=== PATIENT | male | born 1965 | race African-American/Black ===

== ENCOUNTER 2021-08-24 18:27 | Inpatient (IN) | payer OTHER ==
[2021-08-24 19:42] VITALS: BMI 21.5
[2021-08-24] MEDS ORDERED: guaiFENesin 200 MG/10 ML 10 ML UNIT-DOSE CUPS PO PRN (21:00)
[2021-08-24] MEDS ORDERED: P-EPHED 60MG/TRIPROLIDI 2.5MG TABLET PO PRN (21:00)
[2021-08-24] MEDS ORDERED: MAGNESIUM CITRATE 300 ML BOTTLE PO PRN (21:00)
[2021-08-24] MEDS ORDERED: LOPERAMIDE HCL 2 MG CAPSULE PO PRN (21:00)
[2021-08-24] MEDS ORDERED: MAGNESIUM HYDROX 2400MG/30ML ORAL SUSPENSION 30 ML CUP PO PRN (21:00)
[2021-08-24] MEDS ORDERED: MAG HYDROX/AL HYDROX/SIMETH 30 ML UNIT-DOSE CUP PO PRN (21:00)
[2021-08-24] MEDS ORDERED: ACETAMINOPHEN 325 MG TABLET (FP) PO PRN (21:00)
[2021-08-24] MEDS ORDERED: TUBERCULIN PPD 5 TU/0.1ML VIAL ID ONE (22:55)
[2021-08-24] MEDS: THIAMINE HCL 100 MG TABLET (FP) PO SCH (22:56)
[2021-08-24] MEDS: IBUPROFEN 400 MG TABLET (FP) PO PRN (22:57)
[2021-08-24] MEDS: BACITRACIN 15 GM TUBE TOPICAL OINTMENT TP SCH (23:54)
[2021-08-25] MEDS ORDERED: NICOTINE 10 MG CARTRIDGE (INHALER) IH PRN (09:38)
[2021-08-25 09:55] LABS: HEMATOCRIT 35.5 % (35.4-49); HEMOGLOBIN 11.7 GM/dL (11.7-16.9); MCH 29.2 pg (25.7-33.7); MEAN CELL VOLUME 88.4 fl (80-96); MEAN PLT VOLUME 8.8 fl (7.5-11.1); PLATELET COUNT 234 10^3/uL (134-434); RBC 4.02 M/mm3 (4.00-5.60); WHITE BLOOD COUNT 6.6 K/mm3 (4.0-10.0)
[2021-08-25 09:57] LABS: URINE APPEARANCE CLEAR; URINE BILIRUBIN NEGATIVE (NEGATIVE); URINE COLOR YELLOW; URINE GLUCOSE (UA) NEGATIVE (NEGATIVE); URINE KETONE NEGATIVE (NEGATIVE); URINE LEUK ESTERASE NEGATIVE (NEGATIVE); URINE NITRITE NEGATIVE (NEGATIVE); URINE PROTEIN NEGATIVE (NEGATIVE); URINE UROBILINOGEN 0.2 mg/dL (0.2-1.0)
[2021-08-25 09:59] LABS: CALCIUM 8.4 mg/dL (8.5-10.1)
[2021-08-25 10:00] LABS: BLOOD UREA NITROGEN 18.6 mg/dL (7-18)
[2021-08-25 10:04] LABS: BILIRUBIN,TOTAL 0.2 mg/dL (0.2-1); TOT PROT 5.9 g/dl (6.4-8.2)
[2021-08-25] MEDS: PRENATAL VITAMINS W/ FOLIC ACID TABLET (FP) PO SCH (10:11)
[2021-08-25] MEDS: IBUPROFEN 400 MG TABLET (FP) PO PRN (10:11)
[2021-08-25] MEDS: BACITRACIN 0.9 GM PACKET TP SCH ×2 (12:06→21:21)
[2021-08-25] MEDS: BACITRACIN 15 GM TUBE TOPICAL OINTMENT TP SCH (12:13)
[2021-08-25] MEDS: LISINOPRIL 5 MG TABLET PO SCH (16:21)
[2021-08-25] MEDS: THIAMINE HCL 100 MG TABLET (FP) PO SCH (21:20)
[2021-08-25] MEDS: MELATONIN 5 MG TABLETS PO PRN (21:20)
[2021-08-26] MEDS: IBUPROFEN 400 MG TABLET (FP) PO PRN (06:35)
[2021-08-26] MEDS: LISINOPRIL 5 MG TABLET PO SCH (10:44)
[2021-08-26] MEDS: PRENATAL VITAMINS W/ FOLIC ACID TABLET (FP) PO SCH (10:44)
[2021-08-26] MEDS: BACITRACIN 0.9 GM PACKET TP SCH ×2 (10:44→21:13)
[2021-08-26] MEDS: SULFAMETHOXAZOLE/TRIMETHOPRIM 800MG/160MG D.S. TABLET PO SCH (14:27)
[2021-08-26] MEDS: MELATONIN 5 MG TABLETS PO PRN (21:13)
[2021-08-26] MEDS: THIAMINE HCL 100 MG TABLET (FP) PO SCH (21:13)
[2021-08-27] MEDS: LISINOPRIL 5 MG TABLET PO SCH (10:27)
[2021-08-27] MEDS: PRENATAL VITAMINS W/ FOLIC ACID TABLET (FP) PO SCH (10:27)
[2021-08-27] MEDS: SULFAMETHOXAZOLE/TRIMETHOPRIM 800MG/160MG D.S. TABLET PO SCH (10:27)
[2021-08-27] MEDS: BACITRACIN 0.9 GM PACKET TP SCH ×2 (10:27→21:28)
[2021-08-27] MEDS: THIAMINE HCL 100 MG TABLET (FP) PO SCH (21:28)
[2021-08-27] MEDS: MELATONIN 5 MG TABLETS PO PRN (21:28)
[2021-08-28] MEDS: SULFAMETHOXAZOLE/TRIMETHOPRIM 800MG/160MG D.S. TABLET PO SCH (10:25)
[2021-08-28] MEDS: BACITRACIN 0.9 GM PACKET TP SCH ×2 (10:25→21:32)
[2021-08-28] MEDS: PRENATAL VITAMINS W/ FOLIC ACID TABLET (FP) PO SCH (10:25)
[2021-08-28] MEDS: LISINOPRIL 5 MG TABLET PO SCH (10:25)
[2021-08-28] MEDS: IBUPROFEN 400 MG TABLET (FP) PO PRN (16:50)
[2021-08-28] MEDS: THIAMINE HCL 100 MG TABLET (FP) PO SCH (21:31)
[2021-08-28] MEDS: MELATONIN 5 MG TABLETS PO PRN (21:31)
[2021-08-29] MEDS: SULFAMETHOXAZOLE/TRIMETHOPRIM 800MG/160MG D.S. TABLET PO SCH (09:37)
[2021-08-29] MEDS: BACITRACIN 0.9 GM PACKET TP SCH ×2 (09:37→21:28)
[2021-08-29] MEDS: PRENATAL VITAMINS W/ FOLIC ACID TABLET (FP) PO SCH (09:37)
[2021-08-29] MEDS: LISINOPRIL 5 MG TABLET PO SCH (09:39)
[2021-08-29] MEDS: MELATONIN 5 MG TABLETS PO PRN (21:28)
[2021-08-29] MEDS: THIAMINE HCL 100 MG TABLET (FP) PO SCH (21:28)
[2021-08-30] MEDS: BACITRACIN 0.9 GM PACKET TP SCH ×2 (09:26→21:25)
[2021-08-30] MEDS: PRENATAL VITAMINS W/ FOLIC ACID TABLET (FP) PO SCH (09:26)
[2021-08-30] MEDS: SULFAMETHOXAZOLE/TRIMETHOPRIM 800MG/160MG D.S. TABLET PO SCH (09:26)
[2021-08-30] MEDS: LISINOPRIL 5 MG TABLET PO SCH (09:26)
[2021-08-30] MEDS: THIAMINE HCL 100 MG TABLET (FP) PO SCH (21:25)
[2021-08-30] MEDS: MELATONIN 5 MG TABLETS PO PRN (21:25)
[2021-08-31] MEDS: LISINOPRIL 5 MG TABLET PO SCH (09:48)
[2021-08-31] MEDS: SULFAMETHOXAZOLE/TRIMETHOPRIM 800MG/160MG D.S. TABLET PO SCH (09:48)
[2021-08-31] MEDS: BACITRACIN 0.9 GM PACKET TP SCH ×2 (09:49→21:49)
[2021-08-31] MEDS: PRENATAL VITAMINS W/ FOLIC ACID TABLET (FP) PO SCH (09:49)
[2021-08-31] MEDS ORDERED: ARTIFICIAL TEARS (POLYVINYL ALCOHOL) OPTH DROPS OU PRN (10:24)
[2021-08-31] MEDS: IBUPROFEN 400 MG TABLET (FP) PO PRN (16:02)
[2021-08-31] MEDS: MELATONIN 5 MG TABLETS PO PRN (21:48)
[2021-08-31] MEDS: THIAMINE HCL 100 MG TABLET (FP) PO SCH (21:48)
[2021-09-01] MEDS: BACITRACIN 0.9 GM PACKET TP SCH ×2 (10:00→23:51)
[2021-09-01] MEDS: PRENATAL VITAMINS W/ FOLIC ACID TABLET (FP) PO SCH (10:00)
[2021-09-01] MEDS: SULFAMETHOXAZOLE/TRIMETHOPRIM 800MG/160MG D.S. TABLET PO SCH (10:00)
[2021-09-01] MEDS: LISINOPRIL 5 MG TABLET PO SCH (10:00)
[2021-09-01] MEDS: THIAMINE HCL 100 MG TABLET (FP) PO SCH (23:34)
[2021-09-02] MEDS: SULFAMETHOXAZOLE/TRIMETHOPRIM 800MG/160MG D.S. TABLET PO SCH (10:08)
[2021-09-02] MEDS: LISINOPRIL 5 MG TABLET PO SCH (10:08)
[2021-09-02] MEDS: PRENATAL VITAMINS W/ FOLIC ACID TABLET (FP) PO SCH (10:08)
[2021-09-02] MEDS: BACITRACIN 0.9 GM PACKET TP SCH ×2 (10:09→21:09)
[2021-09-02] MEDS: THIAMINE HCL 100 MG TABLET (FP) PO SCH (21:09)
[2021-09-02] MEDS: MELATONIN 5 MG TABLETS PO PRN (21:09)
[2021-09-03] MEDS ORDERED: LISINOPRIL 5 MG TABLET PO ONE (06:59)
[2021-09-03] MEDS: BACITRACIN 0.9 GM PACKET TP SCH ×2 (09:51→21:48)
[2021-09-03] MEDS: SULFAMETHOXAZOLE/TRIMETHOPRIM 800MG/160MG D.S. TABLET PO SCH (09:51)
[2021-09-03] MEDS: LISINOPRIL 5 MG TABLET PO SCH (09:51)
[2021-09-03] MEDS: PRENATAL VITAMINS W/ FOLIC ACID TABLET (FP) PO SCH (09:51)
[2021-09-03] MEDS: THIAMINE HCL 100 MG TABLET (FP) PO SCH (21:47)
[2021-09-03] MEDS: MELATONIN 5 MG TABLETS PO PRN (21:48)
[2021-09-04] MEDS: BACITRACIN 0.9 GM PACKET TP SCH ×2 (09:47→21:21)
[2021-09-04] MEDS: PRENATAL VITAMINS W/ FOLIC ACID TABLET (FP) PO SCH (09:48)
[2021-09-04] MEDS: SULFAMETHOXAZOLE/TRIMETHOPRIM 800MG/160MG D.S. TABLET PO SCH (09:48)
[2021-09-04] MEDS: LISINOPRIL 5 MG TABLET PO SCH (09:48)
[2021-09-04] MEDS: MELATONIN 5 MG TABLETS PO PRN (21:21)
[2021-09-04] MEDS: THIAMINE HCL 100 MG TABLET (FP) PO SCH (21:21)
[2021-09-05] MEDS: PRENATAL VITAMINS W/ FOLIC ACID TABLET (FP) PO SCH (10:16)
[2021-09-05] MEDS: LISINOPRIL 5 MG TABLET PO SCH (10:16)
[2021-09-05] MEDS: BACITRACIN 0.9 GM PACKET TP SCH ×2 (10:16→21:03)
[2021-09-05] MEDS: SULFAMETHOXAZOLE/TRIMETHOPRIM 800MG/160MG D.S. TABLET PO SCH (10:16)
[2021-09-05] MEDS: THIAMINE HCL 100 MG TABLET (FP) PO SCH (21:03)
[2021-09-05] MEDS: MELATONIN 5 MG TABLETS PO PRN (21:03)
[2021-09-06] MEDS: BACITRACIN 0.9 GM PACKET TP SCH ×2 (09:31→21:09)
[2021-09-06] MEDS: LISINOPRIL 5 MG TABLET PO SCH (09:31)
[2021-09-06] MEDS: PRENATAL VITAMINS W/ FOLIC ACID TABLET (FP) PO SCH (09:32)
[2021-09-06] MEDS: SULFAMETHOXAZOLE/TRIMETHOPRIM 800MG/160MG D.S. TABLET PO SCH (09:32)
[2021-09-06] MEDS: THIAMINE HCL 100 MG TABLET (FP) PO SCH (21:10)
[2021-09-06] MEDS: MELATONIN 5 MG TABLETS PO PRN (21:10)
[2021-09-07] MEDS: PRENATAL VITAMINS W/ FOLIC ACID TABLET (FP) PO SCH (10:07)
[2021-09-07] MEDS: LISINOPRIL 5 MG TABLET PO SCH (10:07)
[2021-09-07] MEDS: SULFAMETHOXAZOLE/TRIMETHOPRIM 800MG/160MG D.S. TABLET PO SCH (10:07)
[2021-09-07] MEDS: BACITRACIN 0.9 GM PACKET TP SCH ×2 (10:07→21:13)
[2021-09-07] MEDS: MELATONIN 5 MG TABLETS PO PRN (21:13)
[2021-09-07] MEDS: THIAMINE HCL 100 MG TABLET (FP) PO SCH (21:13)
[2021-09-08] MEDS: PRENATAL VITAMINS W/ FOLIC ACID TABLET (FP) PO SCH (09:44)
[2021-09-08] MEDS: BACITRACIN 0.9 GM PACKET TP SCH ×2 (09:44→21:40)
[2021-09-08] MEDS: SULFAMETHOXAZOLE/TRIMETHOPRIM 800MG/160MG D.S. TABLET PO SCH (09:44)
[2021-09-08] MEDS: LISINOPRIL 5 MG TABLET PO SCH (09:44)
[2021-09-08] MEDS: IBUPROFEN 400 MG TABLET (FP) PO PRN (19:52)
[2021-09-08] MEDS: MELATONIN 5 MG TABLETS PO PRN (21:40)
[2021-09-08] MEDS: THIAMINE HCL 100 MG TABLET (FP) PO SCH (21:40)
[2021-09-09] MEDS ORDERED: LISINOPRIL 5 MG TABLET PO SCH (07:00)
[2021-09-09] MEDS: IBUPROFEN 400 MG TABLET (FP) PO PRN ×2 (07:05→21:31)
[2021-09-09] MEDS ORDERED: LISINOPRIL 5 MG TABLET PO ONE (08:34)
[2021-09-09] MEDS: PRENATAL VITAMINS W/ FOLIC ACID TABLET (FP) PO SCH (09:06)
[2021-09-09] MEDS: BACITRACIN 0.9 GM PACKET TP SCH ×2 (09:06→23:22)
[2021-09-09] MEDS: SULFAMETHOXAZOLE/TRIMETHOPRIM 800MG/160MG D.S. TABLET PO SCH (09:06)
[2021-09-09] MEDS ORDERED: MODERNA COVID-19 VACC,MRNA/PF 100 MCG/0.5 ML IM ONE (10:00)
[2021-09-09] MEDS: THIAMINE HCL 100 MG TABLET (FP) PO SCH (21:30)
[2021-09-09] MEDS: MELATONIN 5 MG TABLETS PO PRN (21:30)
[2021-09-10] MEDS: LISINOPRIL 10 MG TABLET PO SCH (06:26)
[2021-09-10] MEDS: IBUPROFEN 400 MG TABLET (FP) PO PRN ×2 (06:27→18:00)
[2021-09-10] MEDS: PRENATAL VITAMINS W/ FOLIC ACID TABLET (FP) PO SCH (10:19)
[2021-09-10] MEDS: BACITRACIN 0.9 GM PACKET TP SCH ×2 (10:19→21:08)
[2021-09-10] MEDS: SULFAMETHOXAZOLE/TRIMETHOPRIM 800MG/160MG D.S. TABLET PO SCH (10:19)
[2021-09-10] MEDS: THIAMINE HCL 100 MG TABLET (FP) PO SCH (21:08)
[2021-09-10] MEDS: MELATONIN 5 MG TABLETS PO PRN (21:08)
[2021-09-11] MEDS: LISINOPRIL 10 MG TABLET PO SCH (06:42)
[2021-09-11] MEDS: IBUPROFEN 400 MG TABLET (FP) PO PRN ×2 (06:43→20:04)
[2021-09-11] MEDS: PRENATAL VITAMINS W/ FOLIC ACID TABLET (FP) PO SCH (09:42)
[2021-09-11] MEDS: SULFAMETHOXAZOLE/TRIMETHOPRIM 800MG/160MG D.S. TABLET PO SCH (09:42)
[2021-09-11] MEDS: BACITRACIN 0.9 GM PACKET TP SCH ×2 (09:42→21:43)
[2021-09-11] MEDS: THIAMINE HCL 100 MG TABLET (FP) PO SCH (21:43)
[2021-09-11] MEDS: MELATONIN 5 MG TABLETS PO PRN (21:43)
[2021-09-12] MEDS: LISINOPRIL 10 MG TABLET PO SCH (06:29)
[2021-09-12] MEDS: IBUPROFEN 400 MG TABLET (FP) PO PRN ×2 (07:50→19:09)
[2021-09-12] MEDS: SULFAMETHOXAZOLE/TRIMETHOPRIM 800MG/160MG D.S. TABLET PO SCH (09:37)
[2021-09-12] MEDS: BACITRACIN 0.9 GM PACKET TP SCH ×2 (09:37→21:14)
[2021-09-12] MEDS: PRENATAL VITAMINS W/ FOLIC ACID TABLET (FP) PO SCH (09:38)
[2021-09-12] MEDS: MELATONIN 5 MG TABLETS PO PRN (21:13)
[2021-09-12] MEDS: THIAMINE HCL 100 MG TABLET (FP) PO SCH (21:13)
[2021-09-13] MEDS: LISINOPRIL 10 MG TABLET PO SCH (06:32)
[2021-09-13] MEDS: IBUPROFEN 400 MG TABLET (FP) PO PRN ×2 (07:32→21:10)
[2021-09-13] MEDS: SULFAMETHOXAZOLE/TRIMETHOPRIM 800MG/160MG D.S. TABLET PO SCH (09:40)
[2021-09-13] MEDS: BACITRACIN 0.9 GM PACKET TP SCH ×2 (09:40→21:08)
[2021-09-13] MEDS: PRENATAL VITAMINS W/ FOLIC ACID TABLET (FP) PO SCH (09:40)
[2021-09-13] MEDS: THIAMINE HCL 100 MG TABLET (FP) PO SCH (21:08)
[2021-09-13] MEDS: MELATONIN 5 MG TABLETS PO PRN (21:09)
[2021-09-14 06:27] VITALS: TEMP 97.3
[2021-09-14] MEDS: LISINOPRIL 10 MG TABLET PO SCH (07:06)
[2021-09-14] MEDS: PRENATAL VITAMINS W/ FOLIC ACID TABLET (FP) PO SCH (09:14)
[2021-09-14] MEDS: BACITRACIN 0.9 GM PACKET TP SCH (09:14)
[2021-09-14] MEDS: SULFAMETHOXAZOLE/TRIMETHOPRIM 800MG/160MG D.S. TABLET PO SCH (09:14)
[2021-09-14 09:15] VITALS: BP 155/86; PULSE 82
== END 2021-09-14 09:58 | disposition home or self-care (01) | DRG 772 ==
LOC: YASAS 18:27 → Y3W 21:38 → Y3E 08-28 11:28
PROVIDERS: ADMIT Allergy & Immunology; ATTEND Allergy & Immunology
PROC: HZ42ZZZ Group Counseling for Substance Abuse Treatment, Cognitive-Behavioral (ICD-10-PCS; principal; 2021-08-24)
DX: F11.10 Opioid abuse, uncomplicated (principal); F14.20 Cocaine dependence, uncomplicated; F10.20 Alcohol dependence, uncomplicated; F12.20 Cannabis dependence, uncomplicated; F17.210 Nicotine dependence, cigarettes, uncomplicated; I10 Essential (primary) hypertension; B35.1 Tinea unguium; Z86.19 Personal history of other infectious and parasitic diseases
CPT/HCPCS: 0012A; 36415; 71045-TC-FY; 80053; 81003; 84550; 85027; 86593; 86780; 91301; C9803; U0003; U0005